=== PATIENT | female | born 1965 | race Two or more races ===

== ENCOUNTER 2022-05-06 05:18 | Inpatient (IN) | payer OTHER ==
[~2022-05-06] VITALS: Ht 170.2 cm; Wt 83.5 kg
[~2022-05-06 05:18] MED LIST: HYGROTON PO; PROZAC20 MG PO; ZESTRIL40 M1 PO
[2022-05-06] MEDS ORDERED: CHLORTHALIDONE25 MG PO (11:12)
== END 2022-05-08 17:47 | disposition home or self-care (01) | DRG 694 ==
LOC: CIR.AMB 05:18 → O/R 10:58 → SURH 11:20
PROVIDERS: ADMIT Urology; ATTEND Urology
PROC: 0T7D8DZ Dilation of Urethra with Intraluminal Device, Via Natural or Artificial Opening Endoscopic (ICD-10-PCS; 2022-05-06)
PROC: 0TC08ZZ Extirpation of Matter from Right Kidney, Via Natural or Artificial Opening Endoscopic (ICD-10-PCS; principal; 2022-05-06 07:00)
DX: N20.0 Calculus of kidney (principal); Z20.822 Contact with and (suspected) exposure to COVID-19; I10 Essential (primary) hypertension